=== PATIENT | male | born 1965 | race Caucasian/White ===

== ENCOUNTER 2019-06-13 13:58 | Emergency (ER) | payer MEDICARE, MEDICAID ==
[~2019-06-13] VITALS: Ht 177.8 cm; Wt 72.7 kg
--- NOTE | 2019-06-13 14:57 | NUR ---
PATIENT TO ER [facility] WITH C/O LEFT ANKLE PAIN. STATES HE WAS WALKING DOWN THE STEPS OF HIS CAMPER, AT 0900 THIS MORNING, WHEN HE FELT A CRUNCHING SOUND TO HIS LEFT ANKLE AND SEVERE PAIN WITH A "COLD SENSATION" TO HIS FOOT. C/O PAIN IN LEFT POSTERIOR ANKLE AREA. GOOD MOVEMENT AND SENSATION TO LEFT FOOT. PATIENT REPORTS SHOOTING PAINS IN UPPER LEG AND GROIN AFTER INCIDENT OCCURRED.
[2019-06-13] MEDS ORDERED: NAPR-56 PO (15:31)
[2019-06-13 15:37] VITALS: BP 131/91
== END 2019-06-13 15:39 | disposition home or self-care (01) ==
LOC: ER 13:59
DX: S93.402A Sprain of unspecified ligament of left ankle, initial encounter (principal); Z79.899 Other long term (current) drug therapy; X50.1XXA Overexertion from prolonged static or awkward postures, initial encounter; Y93.89 Activity, other specified; Y92.89 Other specified places as the place of occurrence of the external cause; Y99.8 Other external cause status
CPT/HCPCS: 73590; 73610; 99284